=== PATIENT | male | born 1950 | race Two or more races ===

== ENCOUNTER 2024-07-25 10:44 | Emergency (ER) | payer OTHER, MEDICAID ==
[~2024-07-25] VITALS: Ht 172.7 cm; Wt 77.5 kg
[2024-07-25 12:55] VITALS: BP 150/80; PULSE 70; RESP 14; TEMP 99.2; O2SAT 93
[2024-07-25] MEDS ORDERED: HYDROcodone-ACET 5/325MG TAB PO ONE (13:15)
--- NOTE | 2024-07-25 13:24 | ED.PDOC ---
Musculoskeletal HPI Comments A 74 YEAR OLD MALE PRESENTS TO THE ED WITH COMPLAINT OF LEFT BKA STUMP PAIN. PATIENT STATES HE HAS A HISTORY OF A LEFT [id number] AMPUTATION THAT WAS DONE SEVERAL YEARS AGO, AND BEGAN TO EXPERIENCE PAIN TO THIS SITE YESTERDAY. PATIENT DENIES FEVER, CHILLS, SHORTNESS OF BREATH, CHEST PAIN, ABDOMINAL PAIN, NAUSEA, VOMITING, HEADACHE, OR OTHER COMPLAINTS. NO OTHER SYMPTOMS OR MODIFYING FACTORS AT THIS TIME. PATIENT IS ALERT, ORIENTED X 4, AND HAS STEADY GAIT. Chief Complaint: Lower Extremity Time Seen by MD: 11:26 Reviewed Notes: Nurses Notes, Medications, Allergies Information Source: Patient Mode of Arrival: Wheelchair Location: Left Extremity Location: Other (BKA STUMP REGION) Timing: Days Prehospital treatment: None Severity: Moderate Able to Move Extremity: Yes Bear Weight: Fully Pain: Moderate Mechanism: No Trauma, Spontaneous Circumstances: Spontaneous Onset of Symptoms: Spontaneous Symptoms: Pain DVT Risk Factors: NONE Last Tetanus: Unknown Associated signs and symptoms: None Past Medical History PAST MEDICAL HISTORY: Denies Surgical History: BKA (LEFT BKA) Family History Family History: Reviewed,noncontributory to illness Social History Smoker: Non-Smoker Alcohol: Denies ETOH Use Drugs: Denies Drug Use Lives In: Home Constitutional: denies: chills, diaphoresis, fatigue, fever, malaise, sweats, weakness, others EENTM: denies: blurred vision, double vision, ear bleeding, ear discharge, ear drainage, ear pain, ear ringing, eye pain, eye redness, hearing loss, mouth pain, mouth swelling, nasal discharge, nose bleeding, nose congestion, nose pain, photophobia, tearing, throat pain, throat swelling, voice changes, others Respiratory: denies: cough, hemoptysis, orthopnea, SOB at rest, shortness of breath, SOB with excertion, stridor, wheezing, others Cardiovascular: denies: chest pain, dizzy spells, diaphoresis, Dyspnea on exertion, edema, irregular heart beat, left arm pain, lightheadedness, palpitations, PND, syncope, others Gastrointestinal: denies: abdomen distended, abdominal pain, blood streaked bowels, constipated, diarrhea, dysphagia, difficulty swallowing, hematemesis, melena, nausea, poor appetite, poor fluid intake, rectal bleeding, rectal pain, vomiting, others Genitourinary: denies: burning, dysuria, flank pain, frequency, hematuria, incontinence, penile discharge, penile sore, pain, testicle pain, testicle swelling, urgency, others Neurological: denies: dizziness, fainting, headache, left sided numbness, left sided weakness, numbness, paresthesia, pre-existing deficit, right sided numbness, right sided weakness, seizure, speech problems, tingling, tremors, weakness, others Musculoskeletal: reports: others (PAIN AT LEFT BKA SITE); denies: back pain, gout, joint pain, joint swelling, muscle pain, muscle stiffness, neck pain Integumetry: denies: bruises, change in color, change in hair/nails, dryness, laceration, lesions, lumps, rash, wounds, others Allergic/Immunocompromised: denies: Difficulty Healing, Frequent Infections, Hives, Itching, others Hematologic/Lymphatic: denies: anemia, blood clots, easy bleeding, easy bruising, swollen glands, others Endocrine: denies: excessive hunger, excessive sweating, excessive thirst, excessive urination, flushing, intolerance to cold, intolerance to heat, unexplained weight gain, unexplained weight loss, others Psychiatric: denies: anxiety, bipolar disorder, depression, hopeless, panic disorder, schizophrenia, sleepless, suicidal, others All Other Systems: Reviewed and Negative Physical Exam General Appearance: No Apparent Distress, Normal HEENT: Normal ENT Inspection, PERRL/EOMI, Pharynx Normal, TMs Normal Neck: Full Range of Motion, Non-Tender, Normal, Normal Inspection Respiratory: Chest Non-Tender, Lungs Clear, No Accessory Muscle Use, No Respiratory Distress, Normal Breath Sounds Cardiovascular: No Edema, No JVD, No Murmur, No Gallop, Normal Peripheral Pulses, Regular Rate/Rhythm Breast Exam: Deferred Gastrointestinal: No Organomegaly, Non Tender, No Pulsatile Mass, Normal Bowel Sounds, Soft Genitalia: Deferred Pelvic: Deferred Rectal: Deferred Extremities: No calf tenderness, Normal capillary refill, Normal range of motion, No pedal edema, Tender (ON LEFT STUMP, NO REDNESS, SWELLING AND INFECTION SIGNS. ) Musculoskeletal : Apperance: Normal Neurologic: Alert, prototype assembler electronics II-XII nml as Tested, No Motor Deficits, Normal Affect, Normal Mood, No Sensory Deficits Cerebellar Function: Normal Reflexes: Normal Skin: Dry, Normal Color, Warm Peripheral Pulses: 2+ carotid (R), 2+ carotid (L) Lymphatic: No Adenopathy Was a procedure done? Was a procedure done?: No Differential Diagnosis EXT Differential Diagnosis: Cellulitis, Sprain, DJD, Strain, Arthritis X-Ray, Labs, Meds, VS Vital Signs Date Time Temp Pulse Resp B/P (MAP) Pulse Ox O2 Delivery O2 Flow Rate FiO2 07/25/24 12:55 99.2 70 14 150/80 (103) 93 99.2 07/25/24 12:55 70 14 93 Room Air 07/25/24 11:10 99.2 70 14 150/80 (103) 93 Current Medications Medications (Trade) Dose Ordered Sig/Rudi Route Start Time Stop Time Status Last Admin Acetaminophen (Tylenol Tablet) 1,000 mg ONCE ONCE PO 07/25/24 13:30 07/25/24 13:31 DC 07/25/24 13:40 X-Ray, Labs, Meds, VS Comment EXTERNAL MEDICAL RECORDS REVIEWED: [NONE] INDEPENDENT HISTORIANS: [NONE] SOCIAL DETERMINANTS OF HEALTH: [NONE] LABS ORDERED: NONE REVIEWED AND INTERPRETED RESULTS: NONE IMAGING ORDERED: CV VENOUS DOPPLER LOW EXT LT: [INTERPRETED BY [employer]. TECH. NO DVT SEEN AT THIS TIME. LEFT SUPERFICIAL FEMORAL ARTERY OCCLUSION VISUALIZED. PENDING RADIOLOGY REVIEW.] TREATMENTS ORDERED: TYLENOL 1G PO PROCEDURES PERFORMED: NONE CRITICAL CARE TIME: NONE I HAVE DISCUSSED THE PATIENT WITH THE ATTENDING PHYSICIAN DR. CHOWDHURY AND HE AGREES WITH THE PATIENT'S PLAN OF CARE. PATIENT WAS INFORMED THAT HIS FEMORAL ARTERY WAS OCCLUDED ON HIS ULTRASOUND AND THAT HE WOULD NEED TO BE ADMITTED FOR FURTHER TREATMENT AND EVALUATION. PATIENT STATED HE DID NOT WANT TO BE ADMITTED AT THIS TIME AND WOULD LIKE TO SIGN OUT AMA. PATIENT WAS INFORMED OF THE RISKS AND CONSEQUENCES ASSOCIATED WITH SIGNING OUT AMA AND HE STILL INSISTED ON SIGNED OUT AMA. PATIENT SIGNED OUT AMA. Images Reviewed?: Images reviewed and evaluated by me Time of 1ST Reevaluation: 14:40 Reevaluation 1ST: Unchanged Patient Education/Counseling: Diagnosis, Treatment Family Education/Counseling: Diagnosis, Treatment Departure 1 Departure Time of Disposition: 14:40 Impression: Primary Impression: Superficial femoral artery occlusion Disposition: 07 LEFT AGAINST MEDICAL ADVICE Condition: Fair Critical Care Note Critical Care Time?: No Stability Stability form required: No I personally scribed for LAKEISHA SIU ([email or web address]) on 07/25/24 at 13:24. Electronically submitted by Jacob Badillo ([email or web address]). I personally scribed for LAKEISHA SIU ([email or web address]) on 07/25/24 at 14:38. Electronically submitted by Jacob Badillo ([email or web address]). LAKEISHA SIU Jul 25, 2024 13:24
[2024-07-25] MEDS: ACETAMINOPHEN 325 MG TAB PO ONE (13:40)
--- NOTE | 2024-07-25 14:55 | DVH ---
LEFT LOWER EXTREMITY VENOUS DOPPLER CLINICAL HISTORY: LEFT STUMP AND THIGH PAIN TECHNIQUE: Lower extremity venous Doppler study was performed. COMPARISON: None FINDINGS: There is left umqye-osb-hjpa amputation. The left common femoral and superficial femoral veins appear patent with normal augmentation, phasicity, compressibility and color-flow. . IMPRESSION: 1. There is no sonographic evidence for DVT in the left common femoral superficial femoral veins. 2. Left slere-waw-piuj amputation. HS:Y
[2024-07-25] MEDS ORDERED: HYDR-4902 PO (23:29)
== END 2024-07-25 14:33 | disposition left against medical advice (07) ==
LOC: ER 10:44
DX: I70.209 Unspecified atherosclerosis of native arteries of extremities, unspecified extremity (principal); Z98.890 Other specified postprocedural states
CPT/HCPCS: 93971

== ENCOUNTER 2024-07-25 18:06 | Emergency (ER) | payer OTHER, MEDICAID ==
[~2024-07-25] VITALS: Ht 172.7 cm; Wt 86.0 kg
[2024-07-25] MEDS ORDERED: HYDR-4902 PO (23:29)
--- NOTE | 2024-07-25 23:30 | ED.PDOC ---
Musculoskeletal HPI Comments This patient is a pleasant 74-year-old male who returns to the ED today after being seen for facility earlier this morning for complaints of left leg concerns. Patient has a left xfhoe-qnb-agcq amputation and states he had had significant pain events over the past two days. Imaging study this morning initially thought there may be an occlusive artery and therefore, patient was offered admission but stated he did not want to come in. Patient returns tonight with a request to be admitted. Patient denies any fever nausea or vomiting. Vital signs were stable on arrival. Chief Complaint: Lower Extremity Time Seen by MD: 18:47 Reviewed Notes: Nurses Notes Allergies: Coded Allergies: NO KNOWN ALLERGIES (Unverified , 07/25/24) Information Source: Patient Mode of Arrival: Ambulatory Location: Left Extremity Location: Leg Timing: Minutes Prehospital treatment: None Severity: Moderate Able to Move Extremity: No Bear Weight: No Pain: Severe Hand Dominance: Right Mechanism: Spontaneous Circumstances: Spontaneous Onset of Symptoms: Spontaneous Symptoms: Pain DVT Risk Factors: NONE Past Medical History PAST MEDICAL HISTORY: Denies Surgical History: Unknown Surgical History (Other): Left above the knee amputation Family History Family History: Reviewed,noncontributory to illness Social History Smoker: Non-Smoker Alcohol: Denies ETOH Use Drugs: Denies Drug Use Lives In: Home Constitutional: denies: chills, diaphoresis, fatigue, fever, malaise, sweats, weakness, others EENTM: denies: blurred vision, double vision, ear bleeding, ear discharge, ear drainage, ear pain, ear ringing, eye pain, eye redness, hearing loss, mouth pain, mouth swelling, nasal discharge, nose bleeding, nose congestion, nose pain, photophobia, tearing, throat pain, throat swelling, voice changes, others Respiratory: denies: cough, hemoptysis, orthopnea, SOB at rest, shortness of breath, SOB with excertion, stridor, wheezing, others Cardiovascular: denies: chest pain, dizzy spells, diaphoresis, Dyspnea on exertion, edema, irregular heart beat, left arm pain, lightheadedness, palpitations, PND, syncope, others Gastrointestinal: denies: abdomen distended, abdominal pain, blood streaked bowels, constipated, diarrhea, dysphagia, difficulty swallowing, hematemesis, melena, nausea, poor appetite, poor fluid intake, rectal bleeding, rectal pain, vomiting, others Genitourinary: denies: burning, dysuria, flank pain, frequency, hematuria, incontinence, penile discharge, penile sore, pain, testicle pain, testicle swelling, urgency, others Neurological: denies: dizziness, fainting, headache, left sided numbness, left sided weakness, numbness, paresthesia, pre-existing deficit, right sided numbness, right sided weakness, seizure, speech problems, tingling, tremors, weakness, others Musculoskeletal: reports: others (Pain at left leg amputation site); denies: back pain, gout, joint pain, joint swelling, muscle pain, muscle stiffness, neck pain Integumetry: denies: bruises, change in color, change in hair/nails, dryness, laceration, lesions, lumps, rash, wounds, others Allergic/Immunocompromised: denies: Difficulty Healing, Frequent Infections, Hives, Itching, others Hematologic/Lymphatic: denies: anemia, blood clots, easy bleeding, easy bruising, swollen glands, others Endocrine: denies: excessive hunger, excessive sweating, excessive thirst, excessive urination, flushing, intolerance to cold, intolerance to heat, unexplained weight gain, unexplained weight loss, others Psychiatric: denies: anxiety, bipolar disorder, depression, hopeless, panic disorder, schizophrenia, sleepless, suicidal, others Physical Exam General Appearance: Mild Distress (Patient is a only currently in mild dis tress.), Normal HEENT: Normal ENT Inspection, Pharynx Normal, TMs Normal Neck: Full Range of Motion, Non-Tender, Normal, Normal Inspection Respiratory: Chest Non-Tender, Lungs Clear, No Accessory Muscle Use, No Respiratory Distress, Normal Breath Sounds Cardiovascular: No Edema, No JVD, No Murmur, No Gallop, Normal Peripheral Pulses, Regular Rate/Rhythm Breast Exam: Deferred Gastrointestinal: No Organomegaly, Non Tender, No Pulsatile Mass, Normal Bowel Sounds, Soft Genitalia: Deferred Pelvic: Deferred Rectal: Deferred Extremities: Other (Patient displays a left tyvvy-yvk-[id number] amputation without signs of infection or trauma. No dehiscence or concerns of wounds.) Neurologic: Alert, No Motor Deficits, Normal Affect, Normal Mood, No Sensory Deficits Cerebellar Function: Normal Reflexes: NOT DONE Skin: Dry, Normal Color, Warm Lymphatic: No Adenopathy Was a procedure done? Was a procedure done?: No Differential Diagnosis EXT Differential Diagnosis: Other (Arterial occlusion of left leg amputation. Phantom pain concerns.) X-Ray, Labs, Meds, VS Vital Signs Date Time Temp Pulse Resp B/P (MAP) Pulse Ox O2 Delivery O2 Flow Rate FiO2 07/25/24 19:00 98.0 75 18 168/77 (107) 95 X-Ray, Labs, Meds, VS Comment Advised patient that ultrasound studies this morning were unremarkable for any arterial occlusion. Patient seems to have pain events due to unknown nerve concerns. Advised patient follow up with primary care provider and surgeon for discussions related to these events. Time of 1ST Reevaluation: 23:28 Reevaluation 1ST: Improved Consultation: PCP Patient Education/Counseling: Diagnosis, Treatment Family Education/Counseling: Diagnosis, Treatment Departure 1 Departure Time of Disposition: 23:28 Impression: Primary Impression: Neuropathy, leg Disposition: 01 HOME / SELF CARE / HOMELESS Condition: Stable Additional Instructions: Advise utilizing medication as needed for symptomatic pain relief in additionally, patient should follow up with his primary care provider and/or surgeon for discussions related to amputated leg pain concerns. e-Prescriptions Hydrocodone-Acetaminophen (Hydrocodone Bitartrate/AC 5-325 mg) 1 Tab Tab 1 TAB PO Q6HP PRN, #15 TAB Prov: CULLEN WHEATLEY PAC 07/25/24 Discharged With: Self, Friend Critical Care Note Critical Care Time?: No Stability Stability form required: No Heart Score Heart Score: Heart Score Response (Comments) Value History N/A 0 EKG N/A 0 Age N/A 0 Risk Factors N/A 0 Troponin N/A 0 Total 0 CULLEN WHEATLEY PAC Jul 25, 2024 23:30
[2024-07-25] MEDS: ENOXAPARIN SOD 40 MG/0.4 ML SYRINGE SC ONE (23:39)
[2024-07-25 23:45] VITALS: BP 145/98; PULSE 65; RESP 16; TEMP 98.9; O2SAT 96
== END 2024-07-26 02:44 | disposition home or self-care (01) ==
LOC: ER 18:06
DX: G62.9 Polyneuropathy, unspecified (principal); Z89.612 Acquired absence of left leg above knee
CPT/HCPCS: 96372; 99283; J1650